=== PATIENT | male | born 1975 | race African-American/Black ===

== ENCOUNTER 2021-11-28 08:48 | Emergency (ER) | payer OTHER ==
[2021-11-28] MEDS ORDERED: NORCO 5-325 TA1 EACH PO (11:51)
[2021-11-28] MEDS ORDERED: VIBRAMYCIN100 MG PO (11:51)
[2021-11-28] MEDS ORDERED: MIRALAX 238GM238 GM PO (11:51)
[2021-11-28] MEDS ORDERED: ADULT GLYCERIN1 EACH PR (11:55)
== END 2021-11-28 13:20 | disposition home or self-care (01) ==
LOC: FER 08:48
DX: K64.5 Perianal venous thrombosis (principal); K64.8 Other hemorrhoids